=== PATIENT | male | born 1995 | race Caucasian/White ===

== ENCOUNTER 2017-09-28 21:10 | Emergency (ER) | payer OTHER, BC ==
[2017-09-28 21:11] VITALS: TEMP 36.7; Ht 203.2 cm
[2017-09-28] MEDS ORDERED: IBUPROFEN 200 MG TAB PO STA (21:37)
[2017-09-28] MEDS ORDERED: ACETAMINOPHEN 500 MG TAB PO STA (21:37)
--- NOTE | 2017-09-28 21:46 | EMERGENCY ROOM VISIT NOTE ---
ED Visit Note First contact with patient: 21:19 CHIEF COMPLAINT: Ankle pain HISTORY OF PRESENT ILLNESS: This 22-year-old male patient presents to the emergency department by private vehicle after sustaining an injury to the left ankle and foot with a twisting, inversion motion around 5 PM today. The patient states that he was walking on railroad ties when he lost his balance and fell off, twisting the ankle. The patient complains of pain and swelling along the outside of the ankle. The patient has minimal pain of the foot. The patient rates the pain as throbbing and 8/10. The patient is not able to bear weight on the foot. Constant pain, worse with movement, weight bearing, and the dependent position. No knee pain, the patient is able to move their toes. No numbness or weakness of the foot, no laceration. The patient has not had a previous fracture to this ankle. The patient has taken 400 mg of ibuprofen a few hours ago for the pain with some improvement. The patient denies any other injury. REVIEW OF SYSTEMS: A 6 system review of systems was completed with positives and pertinent negatives listed in the HPI. ALLERGIES: No known allergies. MEDICATIONS: Reviewed with the patient PMH: Seizure disorder SOCIAL HISTORY: Lives at home. He is from [place], visiting for the weekend. PHYSICAL EXAM: Vital Signs: Reviewed Nurse's notes, vital signs stable. GENERAL : Pleasant cooperative, no acute distress, but appears in pain, well-developed, well-nourished. MENTAL STATUS: Alert, oriented to person place and time, and cooperative. MUSCULOSKELETAL: The left ankle is significantly swollen and tender over the lateral malleolus, but the skin is intact and there is no ligamentous instability. There is fifth metatarsal tenderness. There is no tenderness over the rest of the foot. There is no calf or tibia/fibular tenderness. There is no visual deformity. The foot and toes are warm and well- perfused. Dorsalis pedis pulse 2+. Sensation to pain and light touch is intact. Capillary refill less than 2 seconds. There is a skin abrasion of the right foot, bleeding controlled, no tenderness of the right foot or ankle. IMAGING: L ANKLE MIN 3 VIEWS ROUTINE, L FOOT MIN 3 VIEWS ROUTINE HISTORY: 22 years-old Male twisted ankle/foot, eval fx, dislocation acute left foot and ankle pain status post trauma COMPARISON: None available TECHNIQUE: 3 views of the left foot and 3 views of the left ankle FINDINGS: ANKLE: There is an acute nondisplaced spiral fracture about the distal fibular metadiaphysis extending below the level of the tibial plafond. Distal tibia appears intact. No acute dislocation. No osteochondral defect. Moderate soft tissue swelling, most pronounced anterolaterally with small joint effusion. No opaque foreign body. FOOT: No acute fracture, dislocation or significant degenerative changes. Soft tissue swelling about the hindfoot. IMPRESSION: 1. Acute nondisplaced fracture of the distal fibular metadiaphysis with soft tissue swelling and small joint effusion. 2. No acute fracture or dislocation of the left foot. ----- L TIBIA/FIBULA 2 VIEWS ROUTINE HISTORY: 22 years-old Male left distal fib fx, eval prox fx acute pain of the left lower leg COMPARISON: Left foot and ankle radiographs of same day TECHNIQUE: 2 views of the left tibia and fibula FINDINGS: Acute nondisplaced fracture of the distal fibular metadiaphysis extending below the level of the tibial plafond redemonstrated. Proximal fibula and the tibia appear to be intact. Soft tissue swelling about the lower leg and ankle. IMPRESSION: Acute nondisplaced fracture of the distal fibula redemonstrated. EMERGENCY DEPARTMENT COURSE: I examined the patient. Differential diagnosis includes ankle sprain/strain, contusion, fracture, dislocation, among others. Patient already took 400 mg's of ibuprofen a few hours ago, he was given an additional 400 mg of ibuprofen and a gram of Tylenol for pain, as well as an ice pack. X-rays of the left foot and left ankle were reviewed by myself and read by radiology and reveal acute nondisplaced fracture of the distal fibula. Ortho-Glass posterior and stirrup splint was applied to the ankle under my direction and the position was satisfactory. Neurovascular status was rechecked and intact. The patient was instructed on the use of walker, as he did not tolerate crutches well. Patient was provided with a disc of his x- rays. Patient was offered a prescription for narcotic pain medication, he declined this with concern for it interacting with his seizure medications, and also states that his pain has been well controlled with the Tylenol and ibuprofen. Patient was educated regarding splint care and pain management at home, orthopedic follow-up, and return precautions, he verbalized understanding. The patient was discharged home in good condition. Vital Signs Date Time Temp Pulse Resp B/P (MAP) Pulse Ox O2 Delivery O2 Flow Rate FiO2 09/28/17 21:11 36.7 81 18 138/77 97 Room Air Medications Administered Medications (Trade) Dose Ordered Sig/Alena Route Start Time Stop Time Status Last Admin Dose Admin Ibuprofen (Advil Tab) 400 mg NOW STAT PO 09/28/17 21:37 09/28/17 21:39 DC 09/28/17 21:57 400 MG Acetaminophen (Tylenol Tab) 1,000 mg NOW STAT PO 09/28/17 21:37 09/28/17 21:39 DC 09/28/17 21:57 1,000 MG Departure Information Impression Primary Impression: Fracture of distal end of left fibula Dispostion Home / Self-Care Condition GOOD Referrals No Doctor, Assigned (PCP) Patient Instructions ED Fx Ankle Lateral Malleolus, [facility] Additional Instructions You have been evaluated and treated in the emergency department today for your left fibula fracture. Keep the splint on at all times, and DO NOT get the splint wet. Use the walker to stay completely off of the left foot. Keep the ankle elevated as much as possible to help reduce pain and swelling. You may apply an ice pack over top of the splint for the next 2 days to help reduce pain and swelling as well. For pain control, you can use the following fzzt-ebe-smeqwsi medicines (if >12 yo): - Regular strength (325mg/tab) Tylenol (acetaminophen) 2 tabs every 4-6 hours as needed. Do not exceed 10 tablets in a 24 hour period. Avoid taking more than 3000 mg of Tylenol per day. This includes any other sources of acetaminophen you may take on a regular basis. - Regular strength (200 mg/tab) Advil (ibuprofen) 3 tabs every 6-8 hours as needed. Do not exceed a dose of 2400 mg per day. - For best results, alternate between Tylenol and Advil every 3-4 hours. You will need to follow-up with an orthopedic surgeon within the next 5-7 days. Please call your primary care provider to get referred to a local orthopedic surgeon when you are home. Take the disc of your x-rays with you to your appointment. Please return to the emergency department for severe worsening pain, loss of feeling in the foot or leg, discoloration of the toes (purple, blue, white), or any other concerns. Work Instructions Return To Work: 5 days Problem Qualifiers Primary Impression: Fracture of distal end of left fibula Encounter type: initial encounter Fracture type: closed Fracture morphology : unspecified fracture morphology Qualified Codes: S82.832A - Other fracture of upper and lower end of left fibula, initial encounter for closed fracture
--- NOTE | 2017-09-28 22:00 | DIAGNOSTIC IMAGING REPORT ---
L ANKLE MIN 3 VIEWS ROUTINE, L FOOT MIN 3 VIEWS ROUTINE HISTORY: 22 years-old Male twisted ankle/foot, eval fx, dislocation acute left foot and ankle pain status post trauma COMPARISON: None available TECHNIQUE: 3 views of the left foot and 3 views of the left ankle FINDINGS: ANKLE: There is an acute nondisplaced spiral fracture about the distal fibular metadiaphysis extending below the level of the tibial plafond. Distal tibia appears intact. No acute dislocation. No osteochondral defect. Moderate soft tissue swelling, most pronounced anterolaterally with small joint effusion. No opaque foreign body. FOOT: No acute fracture, dislocation or significant degenerative changes. Soft tissue swelling about the hindfoot. IMPRESSION: 1. Acute nondisplaced fracture of the distal fibular metadiaphysis with soft tissue swelling and small joint effusion. 2. No acute fracture or dislocation of the left foot. The above report was generated using voice recognition software. It may contain grammatical, syntax or spelling errors. Electronically signed by: Derick Plascencia M.D. 09/28/2017 9:59 PM Dictated Date/Time: 09/28/2017 9:56 PM
--- NOTE | 2017-09-28 22:24 | DIAGNOSTIC IMAGING REPORT ---
L TIBIA/FIBULA 2 VIEWS ROUTINE HISTORY: 22 years-old Male left distal fib fx, eval prox fx acute pain of the left lower leg COMPARISON: Left foot and ankle radiographs of same day TECHNIQUE: 2 views of the left tibia and fibula FINDINGS: Acute nondisplaced fracture of the distal fibular metadiaphysis extending below the level of the tibial plafond redemonstrated. Proximal fibula and the tibia appear to be intact. Soft tissue swelling about the lower leg and ankle. IMPRESSION: Acute nondisplaced fracture of the distal fibula redemonstrated. The above report was generated using voice recognition software. It may contain grammatical, syntax or spelling errors. Electronically signed by: Derick Plascencia M.D. 09/28/2017 10:23 PM Dictated Date/Time: 09/28/2017 10:21 PM
[2017-09-28 23:25] VITALS: BP 129/78; PULSE 86; O2SAT 98
== END 2017-09-28 23:25 | disposition home or self-care (01) ==
LOC: C.EDB 21:11 → C.EDD 23:25
DX: S82.444A Nondisplaced spiral fracture of shaft of right fibula, initial encounter for closed fracture (principal); X50.0XXA Overexertion from strenuous movement or load, initial encounter; Y93.89 Activity, other specified; G40.909 Epilepsy, unspecified, not intractable, without status epilepticus